=== PATIENT | male | born 1960 | race Caucasian/White ===

== ENCOUNTER 2023-08-21 09:00 | Outpatient (RCR) | payer BC, SELFPAY ==
--- NOTE | 2023-07-03 10:02 | HP.PTEVAL ---
Patient's Visit Information Visit Information Visit Information: BEE RODRIGEZ is a 62 year old M referred to Physical Therapy by Self Referred with a diagnosis of BACK PAIN. Date of Evaluation: 07/03/23 Physical Therapist: Dania Srinivasan, PT, Cert MDT Visit Plan Frequency: 2-3x /Week Duration: 4-6 Weeks Plan: ULTRAOUND, MH, CP, STM, POSTURE CORRECTION/STRENGTHENING, INSTRUCTION IN APPROPRIATE BODY MECHANICS AND ACTIVITY MODIFICATIONS. DLS STARTING WITH A NEUTRAL SPINE PROGRESSING ROM TOLERATED. INES LE ROM, STRETCHING AND STRENGTHENING. HEP INSTRUCTION. 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 Present symptoms: VERY SLIGHT LOW BACK PAIN. RIGHT BUTTOCK AND RIGHT KNEE PAIN. A LITTLE NUMBNESS IN FRONT AND OUTSIDE OF RIGHT LOWER LEG NOTICED FOR THE FIRST TIME THIS MORNING. NO RIGHT FOOT OR TOE SX'S. NO LLE SX'S. Present since: 06/18/23 Pain Scale: WORST 8/10, LEAST 2/10 Currently: 6/10 Is it getting better, worse or staying the same: STAYING THE SAME OR MAYBE GETTING WORSE Commenced as a result of: END OF DAY AFTER USING FENCE POUNDER TO PUT UP FLAGS. THE DAY INVOLVED A LOT OF BENDING TOO. Symptoms at onset: LOW BACK ACHE Worse: *STAYING IN BED*, STAYING STILL IN SITTING. WORSE IN THE MORNING. Better: ON THE MOVE. BETTER THE DAY PROGRESSES. ICE ON R KNEE AND HIP. TAKING FLEXERIL AND VOLTERAN X 3 DAYS AND SEEM TO BE HELPING SOME. Disturbed sleep: YES Previous history/Previous treatment: INTERMITTENT MILD LOW BACK PAIN SELF TREATED IN THE PAST - JUST A FEW EPISODES IN 40 YEARS. NO BACK SURGERY. NO JERARDO'S. NO CHIROPRACTIC. Treatment this episode: DAY AFTER PAIN STARTED PAIN TRAVELED INTO R HIP AND KNEE SO 4 DAYS LATER WENT TO [facility] IN [facility] AND WAS PRESCRIBED A PAIN RELIEVER AND MUSCLER RELAXER X 7 DAYS THAT GAVE SOME RELIEF. WHEN THEN RAN OUT NOTICED INCREASED PAIN SO WENT TO PCP AT [facility] AND SAW COMPUTED TOMOGRAPHY TECHNOLOGIST AND WAS PRESCRIBED CURRENT MEDS AND WAS GIVEN ONE MODIFIED R SDLY PLANK TYPE STRETCH THAT HASN'T SEEMED TO HAVE AN EFFECT. HE REPORTS PT WAS NOT ORDERED AND HE DID NOT ASK FOR PT BUT DECIDED TO SELF REFER TO PT YESTERDAY. ALSO DECIDED TO TRY MASSAGE YESTERDAY AND HAD THAT CLYDE'T - HE STATES IT WENT WELL AND SHE FOUND AREAS THAT HURT - WHEN I LEFT IF FELT BETTER BUT IT DIDN'T SUSTAIN AND LAST NIGHT WAS NO BETTER AND THIS MORNING THERE IS NUMBNESS BELOW MY KNEE. IT FEELS LIKE IT MIGHT BE TRAVELING SOUTH A LITTLE. Coughing/sneezing/straining: NE Gait: I AM DEFINATELY FAVORING THE LEG. PATIENT REPORTS HE IS USUALLY A FAST WALKER AND PEOPLE USUALLY HAVE A HARD TIME KEEPING UP WITH HIM. Bowel or Bladder Dysfunction: NO Accidents: NO Unexplained weight loss: NO Imaging: NO PMH/Recent major surgery: UNREMARKABLE. OTHER: PLANNING TO GO ON A [place] OF [place] IN ABOUT 10 DAYS. Objective Objective: Sitting/Standing Posture: R LATERAL SHIFT BUT ABLE TO SLIGHTLY CROSS MIDLINE TO THE LEFT. R LE EXTERNAL ROTATION. REDUCED LORDOSIS. Active Correction of posture: NE Other Observations: THIS PATIENT AMBULATES INDEP'LY INTO PT WITH DECREASED CADANCE, INCREASED TRUNK FLEXION AND LIMPING ON R LE. Sensory deficit: DECREASED LIGHT TOUCH SENSATION R MEDIAL LOWER LEG COMPARED TO LEFT. OTHERWISE INES LE LIGHT TOUCH SENSATION APPEARS TO BE INTACT AND SYMMETRICAL ROM deficit: TIGHT INES HIPS ALL PLANES, INES HS TIGHTNESS R > LEFT AND INES GASTROC-SOLEUS TIGHTNESS. PATIENT C/O R LBP WITH LEFT HIP IR TESTING AND C/O R KNEE AND HIP PAIN WITH R HIP IR AND ER TESTING. Motor deficit: LLE: HIP 4/5, KNEE 5/5, ANKLE 5/5. RLE: HIP 3+/5, KNEE EXT 4-/5, KNEE FLEX 4/5, ANKLE 5/5. Reflexes: UNABLE TO ELICIT R QUAT DTR. R ACHILLES 2/3. L LE 2/3. Dural Signs: POSITIVE INES LE'S R > L Lumbar mvmt loss: flex - MIN - INCREASES L THIGH PAIN. ext - LON - NE R SG - LON - NE L SG - LON - NE Core strength: FAIR TREATMENT: NEUROMUSCULAR REEDUCATION - RETRAINING OF MVMT AND POSTURE FOR SITTING, LYING AND STANDING ACTIVITIES. RECOMMENDED CANE FOR GAIT NEEDED TO ALLEVIATE PAIN. OTHER: RECOMMENDED PATIENT CONTACT PCP TO LET THEM KNOW HIS SYMPTOMS HAVE PROGRESSED BELOW THE KNEE AND PATIENT IS AGREEABLE. PATIENT MAY BENEFIT FROM LUMBAR IMAGING. PATIENT AGREEABLE TO THIS REPORT BEING SENT TO HIS PCP. Balance/Special Test Scores Oswestry Low Back Score: 20 Goals Goal 1:: DECREASE C/O LOW BACK AND R LE SX'S. Goal Time Frame: 4-6 Weeks Goal 2:: IMPROVE PERSONAL CARE, LIFTING, WALKING, SITTING, SLEEP, SOCIAL LIFE, TRAVEL AND WORK/HOMEMAKING FUNCTION. Goal Time Frame: 4-6 Weeks Goal 3:: INSTRUCT IN PROPHYLAXIS Goal Time Frame: 4-6 Weeks Anticipated Interventions Patient/Client Instruction: Educate patient on: Condition, Plan of Care and Risk Factors For the Purpose of:: To improve self management Therapeutic Exercise to Include: Strength training, Body mechanics, Postural training, Flexibilty training, Gait and locomotor training, Neuromotor development, In an aquatic setting and Dynamic Lumbar Stabilization For the Purpose of:: To decrease pain, To improve muscle performance and motor function, To increase tolerance to activity/condition/position, To improve ability of physical actions for home/community/work/leisure and To improve gait and locomotor functions Manual Therapy Techniques to Include: Soft tissue mobilization For the Purpose of:: To decrease pain and To improve nutrient delivery to tissue Cryotherapy (ice pack, ice massage): Yes Thermo therapy (hot pack): Yes Ultrasound (thermal/non thermal): Yes For the Purpose of:: To decrease pain and To improve nutrient delivery to tissue Text: Thank you for the opportunity to evaluate your patient. For Medicare and Medicare HMO plans, please review the plan of care and approve it. It will need to be FAXED BACK to us at [phone] for Medicare purposes. For Medicare only, by signing this I certify the plan of care. Please let me know if there are questions or concerns regarding this plan of care. Physician Signature: Date:
--- NOTE | 2023-08-05 10:02 | HP.PTREVAL_ITS ---
Re-Evaluation Intro: Self Referred, It has been my pleasure to treat BEE RODRIGEZ over the last 6 visits for BACK PAIN. Please see the progress note below for an update on the physical therapy plan of care! Subjective Subjective: PATIENT REPORTS THAT WHEN HE LEFT FOR THE TRIP HE WAS GETTING BETTER AND STARTED THE MEDROL DOSE ANDERSON ABOUT 2 DAYS INTO THE TRIP. HE STATES IT QUICKLY MADE A DIFFERENCE AND TOOK CARE OF THE PAIN. HE STATES HE WAS WALKING AND SLEEPING GOOD. A LITTLE DISCOMFORT WHEN GOT HOME BUT SINCE THEN HAS BEEN PRETTY GOOD. USING IBUPROFEN NEEDED. R THIGH IS MATERIAL DISPATCHER IN THE FRONT AND R NORIEGA IS STILL NUMB. WORKING AND BEING CAREFUL WITH BENDING, LIFTING AND TWISTING. DOING HEP. CONSULT WITH DR. MERCED BROOKS PENDING END OF NEXT WEEK. CANCELLED JERARDO THAT WAS SCHEDULED THIS MORNING. CURRENT SX'S: INTERMITTENT ACHE IN FRONT OF HIP/THIGH (IN THE MORNING) AND CONSTANT NORIEGA NUMBNESS. R THIGH IS ALWAYS TENDER WITH PALPATION. Objective Objective/Function: ASSESSMENT: POSTURE: POOR. PATIENT ONLY ABLE TO PARTIALLY CORRECT AND NOT ABLE TO MAINTAIN PARTIAL CORRECTION. VERY SLOUCHED, FORWARD HEAD AND ROUNDED SHOULDERS. REDUCED LORDOSIS. L ILIAC CREST SLIGHTLY HIGHER THAN R. Sensory deficit: DECREASED LIGHT TOUCH SENSATION R MEDIAL LOWER LEG COMPARED TO LEFT. OTHERWISE INES LE LIGHT TOUCH SENSATION APPEARS TO BE INTACT AND SYMMETRICAL ROM deficit: TIGHT INES HIPS ALL PLANES, INES HS TIGHTNESS R > LEFT AND INES GASTROC-SOLEUS TIGHTNESS. Motor deficit: IENS LE'S 5/5 WITH MMT'ING. Dural Signs: NEGATIVE INES LE'S. Lumbar mvmt loss: flex - VERY MIN - NE ext - MOD - NE B SG - MOD L>R - NE Core strength: FAIR PATIENT IS IMPROVING AND IS A GOOD CANDIDATE TO CONTINUE PT FOR BELOW POC AND PATIENT IS AGREEABLE. PATIENT TOLERATED ALL EX'S WELL TODAY AND COMMUNICATED/DEMONSTRATED A GOOD UNDERSTANDING OF ALL INSTRUCTIONS AFTER GIVEN. Plan Plan Plan: CONTINUE PT 1-2 TIMES A WK X 2-3 WKS. RE-INFORCEMENT OF PRIOR INSTRUCTIONS GIVEN NEEDED. DIANNA'S EXTENSION PRINCIPLE OF TREATMENT (WITH LATERAL COMPONENT NEEDED). CORE STRENGTH AND STABILITY THER EX. INES LE ROM, STRETCHING AND STRENGTHENING. WORK TOWARD INDEP HOME AND GYM PROGRAM AT FACILITY OF PATIENTS CHOICE. PATIENT AGREEABLE. Balance/Gait/Functional tests Balance/Special Test Scores Oswestry Low Back Score: 0 Goals Goals Goal 1:: DECREASE C/O LOW BACK AND R LE SX'S. Goal Time Frame: 4-6 Weeks Goal Progress: Progressing Goal 2:: IMPROVE PERSONAL CARE, LIFTING, WALKING, SITTING, SLEEP, SOCIAL LIFE, TRAVEL AND WORK/HOMEMAKING FUNCTION. Goal Time Frame: 4-6 Weeks Goal Progress: Goal Met Goal 3:: INSTRUCT IN PROPHYLAXIS Goal Time Frame: 4-6 Weeks Goal Progress: Progressing Anticipated Interventions Anticipated Interventions Patient/Client Instruction: Educate patient on: Condition, Plan of Care and Risk Factors For the Purpose of:: To improve self management Therapeutic Exercise to Include: Strength training, Body mechanics, Postural training, Flexibilty training, Gait and locomotor training, Neuromotor development, In an aquatic setting and Dynamic Lumbar Stabilization For the Purpose of:: To decrease pain, To improve muscle performance and motor function, To increase tolerance to activity/condition/position, To improve ability of physical actions for home/community/work/leisure and To improve gait and locomotor functions Manual Therapy Techniques to Include: Soft tissue mobilization For the Purpose of:: To decrease pain and To improve nutrient delivery to tissue Cryotherapy (ice pack, ice massage): Yes Thermo therapy (hot pack): Yes Ultrasound (thermal/non thermal): Yes For the Purpose of:: To decrease pain and To improve nutrient delivery to tissue Re-Evaluation Ending Re-evaluation ending: Please do not hesitate to contact me at [phone] by phone or if you have questions or concerns regarding this new plan of care! Sincerely, Dania Srinivasan, PT, Cert MDT
--- NOTE | 2023-08-21 09:57 | HP.PTDCSUM ---
Discharge Summary D/C summary: It has been my pleasure to treat BEE RODRIGEZ referred by Self Referred, with the diagnosis of BACK PAIN for a total of 8 visit(s). Discharge Date: 08/21/23 Please see the following information for a summary of their discharge status. Subjective Subjective: HAD CONSULT WITH DR. BROOKS. SURGERY NOT RECOMMENDED BASED ON CURRENT CLINICAL SX'S. NO FOLLOW RECOMMENDED WITH WITH DR. BROOKS AT THIS TIME EXCEPT IF FLARES UP. STILL MAYBE HAVING SOME LINGERING NUMBNESS R LE SX'S ON INSIDE OF R CALF/NORIEGA - PATIENT STATES IT IS BARELY NOTICEABLE. PATIENT REPORTS HE DID ALL OF HIS HOME EX'S THIS MORNING WITHOUT DIFFICULTY. PATIENT STATES HE FEELS READY TO CONTINUE EX INDEP'LY AT THIS POINT. Pain LOW BACK: Pain Intensity (Out of 10): 2 R BUTTOCK: Pain Intensity (Out of 10): 2 R KNEE: Pain Intensity (Out of 10): 0 Overall Improvement % Improvement: 98 Objective Objective/Function: PATIENT'S SX'S HAVE IMPROVED NICELY AND HE HAS RESPONDED WELL TO PT. ALL GOALS HAVE BEEN MET AND HE IS APPROPRIATE FOR DISCHARGE. Goals Goal 1:: DECREASE C/O LOW BACK AND R LE SX'S. Goal Progress: Goal Met Goal 2:: IMPROVE PERSONAL CARE, LIFTING, WALKING, SITTING, SLEEP, SOCIAL LIFE, TRAVEL AND WORK/HOMEMAKING FUNCTION. Goal Progress: Goal Met Goal 3:: INSTRUCT IN PROPHYLAXIS Goal Progress: Goal Met Plan Plan: D/C D/C Information d/c sentence: If there are questions or concerns regarding this patient's physical therapy, please feel free to call me at [phone]. Thank you for the referral of this patient. Sincerely, Dania Srinivasan, PT, Cert MDT Balance/Gait/Functional tests Balance/Special Test Scores Oswestry Low Back Score: 0 Improvement % Improvement: 98
== END 2023-08-21 10:49 | disposition home or self-care (01) ==
LOC: PT 09:00
PROVIDERS: PCP Nurse Practitioner Primary Care
DX: M54.40 Lumbago with sciatica, unspecified side (principal)
CPT/HCPCS: 97035; 97112; 97162; 97530